=== PATIENT | female | born 1980 | race Caucasian/White ===

== ENCOUNTER 2024-06-26 06:19 | Day surgery (SDC) | payer OTHER, SELFPAY | END 2024-06-26 15:04 | disposition home or self-care (01) | LOC: GI 06:19 | PROVIDERS: ATTENDING PHYSICIAN Internal Medicine | DX: Z12.11 Encounter for screening for malignant neoplasm of colon (principal); K63.5 Polyp of colon | CPT/HCPCS: 45385; 88305 ==

== ENCOUNTER 2024-10-06 14:37 | Emergency (ER) | payer OTHER, SELFPAY ==
[2024-10-06 14:48] VITALS: BP 114/78
[2024-10-06 15:18] LABS: % Basophils 0.3 % (0-2); % Eosinophils 0.4 % (0-6); % Immature Granulocytes 0.4 % (0-0.5); % Lymphocytes 2.3 % (20.5-51.1); % Monocytes 3.1 % (1.7-9.3); % Neutrophils 93.5 % (42.2-75.2); Absolute Lymphocytes 0.3 10^3/uL (1.2-3.4); Absolute Monocytes 0.3 10^3/uL (0.1-0.6); Absolute Neutrophils 10.4 10^3/uL (1.4-6.5); Hematocrit 41.3 % (37.0-47.0); Hemoglobin 13.6 g/dL (12.0-16.0); Mean Corp Hgb Conc. 32.9 g/dL (33.0-37.0); Mean Corpuscular Hgb 27.1 pg (27.0-31.0); Mean Corpuscular Volume 82.4 fL (81.0-99.0); Mean Platelet Volume 12.6 fL (7.4-10.4); Nucleated Red Blood Cells % 0 %; Platelet Count 129 10^3/uL (130-400); Red Blood Cell Count 5.01 10^6/uL (4.20-5.40); Red Cell Dist. Width 12.3 % (11.5-14.5); White Blood Cell Count 11.1 10^3/uL (4.8-10.8)
[2024-10-06 15:20] LABS: HCG, Serum Qualitative Screen Negative
[2024-10-06 15:24] LABS: ALT (SGPT) 21 U/L (0-35); AST (SGOT) 22 U/L (14-36); Albumin 4.6 g/dl (3.5-5.0); Alkaline Phosphatase 66 U/L (38-126); Blood Urea Nitrogen 17 mg/dl (7-17); Calcium 9.7 mg/dl (8.4-10.2); Carbon Dioxide 24 mmol/L (22-30); Chloride 104 mmol/L (98-107); Glucose 111 mg/dl (70-99); Lipase 62 U/L (23-300); Potassium 4.5 mmol/L (3.5-5.1); Sodium 136 mmol/L (135-145); Total Bilirubin 0.9 mg/dl (0.2-1.3); eGFR > 60.00
[2024-10-06 17:55] VITALS: BP 121/76
--- NOTE | 2024-10-06 18:24 | ED.GENMED ---
History of Present Illness
General
Chief Complaint: Abdominal Symptoms
Source: patient
Time Seen by Provider: 10/06/24 18:05
History of Present Illness
History of Present Illness:
44-year-old female with past medical history of hypothyroidism presents to the emergency department for evaluation of nausea vomiting diarrhea all of which began early this morning, diarrhea seems to have resolved but patient still with nausea.
States has had minimal to no intake of solids and liquids today and felt presyncopal which is what prompted her to come to the ER. Denies any fevers, chills, rigors, urinary symptoms or any other concerns. Patient did not take anything for her
symptoms prior to arrival. Social history was noted for patient working as a physical therapist at [employer] and while she has not had anybody sick at home she states it is very possible she came in contact with somebody at work
with similar symptoms.
Past History
Past History
ED Past Medical History: Hypothyroidism
ED Past Surgical History: None
Social History
Tobacco: Non-smoker
Alcohol: None
Drug: None
Personal:
Living: with family
Employment: Employed
Review of Systems
Review of Systems
All Other Systems: ROS reviewed and negative except as documented in HPI and ROS
Phy Exam
Physical Exam
Physical Exam:
GENERAL: Alert , in no apparent distress
EYE: clear conjunctiva b/l
HEAD: NCAT
ENT: o/p clr, mmm.
CARDIAC: Borderline tachycardic rate and rhythm
LUNGS: Clear breath sounds bilaterally, no acute respiratory distress, no wheezes/rales/rhonchi
ABDOMEN: Soft, without focal tenderness, no r/g, no cvat
NEUROLOGICAL: Alert and oriented
SKIN: Warm and dry, skin intact.
MUSCULOSKELETAL: well perfused.
PSYCH: Normal and appropriate interaction.
Scores
Heart Failure Risk
Heart Failure Risk Score: Not Applicable
Heart Score for Chest Pain Patients
STEMI patient?: Not applicable
Withdrawal Assessment of Alcohol
Withdrawal Assessment Completed?: Not applicable
Course
Orders/Labs/Results
Orders:
Orders
10/06/24 14:50
Test Result ONCE
10/06/24 14:59
Complete Blood Count/With Diff Urgent
Comprehensive Metabolic Panel Urgent
HCG, Serum Qualitative Screen Urgent
Lipase Urgent
10/06/24 18:23
0.9% Sodium Chloride 1000 ml [Nss] 1,000 ml IV BOLUS
Ketorolac [Toradol] 30 mg IV NOW STA
Ondansetron Injectable [Zofran] 4 mg IV NOW STA
Abnormal Lab Results
10/06/24
14:59
WBC 11.1 H 10^3/uL
(4.8-10.8)
MCHC 32.9 L g/dL
(33.0-37.0)
Plt Count 129 L 10^3/uL
(130-400)
MPV 12.6 H fL
(7.4-10.4)
Absolute Neuts (auto) 10.4 H 10^3/uL
(1.4-6.5)
Absolute Lymphs (auto) 0.3 L 10^3/uL
(1.2-3.4)
Neutrophils % 93.5 H %
(42.2-75.2)
Lymphocytes % 2.3 L %
(20.5-51.1)
Glucose 111 H mg/dl
(70-99)
10/06/24 14:59
10/06/24 14:59
Vital Signs
Initial and Last Documented VS:
Initial Vital Signs
Temp Pulse Resp BP Pulse Ox
98.0 F 84 16 114/78 98
10/06/24 14:48 10/06/24 14:48 10/06/24 14:48 10/06/24 14:48 10/06/24 14:48
Last Documented Vital Signs
Temp Pulse Resp BP Pulse Ox
98.4 F 71 16 100/65 99
10/06/24 17:55 10/06/24 20:55 10/06/24 17:55 10/06/24 20:55 10/06/24 20:55
MDM/Problems Addressed
Differential Diagnosis Includes:
Gastroenteritis, colitis, C. difficile colitis considered however patient without any current risk factors for this, electrolyte derangement,
MDM/Problems Addressed:
44-year-old female presenting to the ER for evaluation of nausea vomiting and diarrhea that began this morning. Diminished p.o. intake to both solids and liquids. Patient was presyncopal but never lost consciousness prior to arrival. Mildly
tachycardic on exam and during arrival. I suspect infectious gastroenteritis to be the most likely diagnosis. Will treat with Zofran, Toradol and fluids. Discussed with patient submitting stool sample however she states since diarrhea seems to
have subsided she is going to defer this at this time.
*Pulse Oximetry
Patient hypoxic: no
*Critical Care Note
Total Time (30-74mins, 75-104mins- exclusive of procedures): Not Applicable
Patient Management
Escalation/DeEscalation of care consider admission/obs:
Following medications and IV fluids patient feels significantly better and would like to be discharged home. Prescription for Zofran sent to patient's pharmacy. Aware of return precautions. Stable for discharge.
ED Attending Note
-
Portions of this chart may have been created with voice recognition software.� Occasional wrong word or��sound alike� substitutions may have occurred due to the inherent limitations of voice recognition software.
Discharge Plan
Departure
Patient Disposition: Home (Routine Discharge)
Date of Disposition: 10/06/24
Time of Disposition: 20:41
Patient with high blood pressure during this ER visit?: No
Discharge Problem:
Nausea vomiting and diarrhea
Instructions: Nausea and Vomiting, Adult (DC)
Prescriptions:
New
ondansetron 4 mg tablet,disintegrating
4 mg PO TIDPRN PRN (Reason: nausea/vomiting) Qty: 8 0RF
No Action
levothyroxine 75 MCG tablet
75 mcg PO DAILY
ascorbic acid (vitamin C) [Vitamin C] 500 MG tablet
500 mg PO DAILY
cholecalciferol (vitamin D3) [Vitamin D3] 50 MCG capsule
2,000 unit PO DAILY
Misoprostol
1 tab PO HS PRN (Reason: pre op)
Referrals:
Cady Bullock PA-C [Family Provider] -
Interventions
Interventions:
*Risk Screen - Suicide Last Done: 10/06/24 14:48
*General Assessment Last Done: 10/06/24 18:47
*Neglect/Abuse Screening Last Done: 10/06/24 14:48
ED- Fall Risk Assessment Last Done: 10/06/24 20:55
*ED COVID-19 Vaccine History Last Done: 10/06/24 18:47
*Nursing Disposition Last Done: 10/06/24 20:55
WG-Msrvtq-Mcyilgrego Assessment Last Done: 10/06/24 18:52
Discharge Date and Time
Discharge Date/Time: 10/06/24 20:57
Print Language: SWEDISH
[2024-10-06] MEDS: NSS 1000 IV (18:53)
[2024-10-06] MEDS: TORADOL 30 MG IV (18:55)
[2024-10-06] MEDS: ZOFRAN 4 MG IV (18:55)
[2024-10-06 18:59] VITALS: BP 109/71
[2024-10-06 19:00] VITALS: BMI 25.3
[2024-10-06 20:55] VITALS: BP 100/65
== END 2024-10-06 20:57 | disposition home or self-care (01) ==
LOC: EMR 14:37
PROVIDERS: Student in an Organized Health Care Education/Training Program; EMERGENCY PHYSICIAN Emergency Medicine; FAMILY PHYSICIAN Physician Assistant Medical
DX: R11.2 Nausea with vomiting, unspecified (principal); R19.7 Diarrhea, unspecified; E03.9 Hypothyroidism, unspecified
CPT/HCPCS: 99283; 96374; 96375; 80053; 83690; 84703; 85025

== ENCOUNTER → 2024-11-26 07:57 | Outpatient (REF) | payer SELFPAY | LOC: HWRAD 07:57 | PROVIDERS: ATTENDING PHYSICIAN Physician Assistant Medical | DX: E78.00 Pure hypercholesterolemia, unspecified (principal) | CPT/HCPCS: 75571 ==

== ENCOUNTER → 2024-11-26 08:04 | Outpatient (REF) | payer OTHER, SELFPAY | LOC: HWWDC 08:04 | PROVIDERS: ATTENDING PHYSICIAN Physician Assistant Medical | DX: Z12.31 Encounter for screening mammogram for malignant neoplasm of breast (principal) | CPT/HCPCS: 77063; 77067 ==